=== PATIENT | male | born 1990 | race Caucasian/White ===

== ENCOUNTER 2020-08-13 07:49 | Emergency (ER) | payer OTHER ==
[~2020-08-13] VITALS: Ht 170.2 cm; Wt 70.8 kg
--- NOTE | 2020-08-13 08:11 | NUR ---
The patient is bibra for c/o epigastric pain, burning and c/o vomitng since yesterday. The patient rates pain 8/10. Abdomen soft and non-distended. In room air and denies SOB. Respiration regular and unlabored. Attached on a monitor. Warm blanket provided for comfort. Will continue to monitor the patient.
--- NOTE | 2020-08-13 08:14 | NUR ---
dr. cornejo at bedside
[2020-08-13] MEDS ORDERED: LIDOCAINE VISCOUS 2% UD 15 ML UDC ONE (08:17)
[2020-08-13] MEDS ORDERED: MAG HYDROX/AL HYDROX/SIMETH 30 ML UDC ONE (08:18)
[2020-08-13] MEDS ORDERED: FAMOTIDINE (20 MG) 20 MG TABLET ONE (08:18)
[2020-08-13] MEDS ORDERED: MAG HYDROX/AL HYDROX/SIMETH 30 ML UDC PO ONE (08:30)
[2020-08-13] MEDS ORDERED: LIDOCAINE VISCOUS 2% UD 15 ML UDC MM ONE (08:30)
[2020-08-13] MEDS ORDERED: FAMOTIDINE (20 MG) 20 MG TABLET PO ONE (08:30)
[2020-08-13 08:31] LABS: BASOPHILS % (AUTO) 0.3 % (0.0-2.0); EOSINOPHILS % (AUTO) 0.8 % (0.0-6.0); HEMATOCRIT 38 % (39-51); HEMOGLOBIN 12.6 g/dL (13.5-17.5); LYMPHOCYTES # (AUTO) 1.2 /CMM (0.8-4.8); LYMPHOCYTES % (AUTO) 11.8 % (20.0-44.0); MEAN CORPUSCULAR HGB CONC 34 g/dl (31.0-36.0); MEAN CORPUSCULAR VOLUME 89 fL (80-96); MONOCYTES # (AUTO) 0.6 /CMM (0.1-1.30); MONOCYTES % (AUTO) 6.1 % (2.0-12.0); NEUTROPHILS # (AUTO) 8.3 /CMM (1.8-8.9); PLATELET COUNT (AUTO) 293 /CMM (150-450); RED BLOOD CELL COUNT(AUTO) 4.24 MIL/uL (4.5-6.0); WHITE BLOOD COUNT (AUTO) 10.2 K/uL (4.3-11.0)
[2020-08-13 08:39] LABS: CALCIUM, SERUM 8.5 mg/dL (8.5-10.1); CREATININE 0.7 mg/dL (0.6-1.3); POTASSIUM 3.6 mmol/L (3.5-5.1)
[2020-08-13 08:54] LABS: ALBUMIN 3.5 g/dL (3.4-5.0); BILIRUBIN,DIRECT 0.1 mg/dL (0.0-0.2); BILIRUBIN,TOTAL 0.5 mg/dL (0.2-1.0); TOTAL PROTEIN, SERUM 7.3 g/dL (6.4-8.2)
[2020-08-13] MEDS ORDERED: FAMO-131 PO (09:26)
--- NOTE | 2020-08-13 10:18 | NUR ---
Patient alert and oriented x3. Denies pain. In room air and denies SOB. Respiration regular and unlabored. Patient is in no apparent distress.Patient discharged to home in stable condition. Written and verbal after care instructions given. Patient verbalizes understanding of instruction.
[2020-08-13 10:19] VITALS: BP 133/68
--- NOTE | 2020-08-13 10:30 | NUR ---
"SS Consult: SS Consult requested for homelessness. The pt. is a 30-year-old male who came in seeking medical attention for epigastric pain per EMR. The pt. is alert & oriented x 3. Pt. is responding to internal stimuli, with flight of ideas and elated mood. Pt. is tangential and SW unable to gather much information from pt. Pt. denies SI/HI. Pt. stated he is experiencing homelessness would like to be discharge to previous living arrangements. The pt. refused to sign homeless waiver. SW provided pt. with homeless resources, mental health resources and patient accepted them. SW discussed with Dr. Durbin and pt. will be discharged to [facility] as they is medically cleared. Pt. will follow up with resources as needed. SW provided pt. with the following resources: Substance Abuse resources provided included: [facility] Substance Abuse Self-Helpline ([facility]) ; [facility] [address] [facility]. [place] [address] ; [facility] [address] [facility] [address] ; [facility] [address] [facility] [id number] ; [facility] [phone] ; [facility] 9684 [facility] [phone] ; [facility] 909 [facility] [phone] ; [facility] Substance Abuse Helpline([facility])-[facility] ; [facility] ; [facility] [place]; [facility] [place]; [facility] [place]; [facility] Jonathon Turner; [facility] [place]; [place] [facility] [place]; [facility] Patricio; [facility] Loreta [place]; Alcoholics Anonymous -SFV; Gf-Qpry-Odxwxjp ; Marijuana Anonymous -SFV; Narcotics Anonymous www.na.org; Year-round shelters: [facility] [place] [address] [place] [address] ; [facility] [place] [address] [place] [address]; [place] [facility] [place]26 [place] [facility]. [facility] [address] Winter Shelters: Mirna Stovall [place] Provider: [facility] Address: [address], [address] # of Beds: 47 Population Served: [facility] 6 | [facility]ory [facility] Provider: [facility] Last Address: [address], [address] # of Beds: 66 Population Served: [facility] [place] Provider: First [facility] Serve Address: [address] [facility], [address] # of Beds: 56 Population Served: [facility] [place] Provider: [facility] Address: [address] [place] [address], [address] # of Beds: 49 Population Served: [facility] 8 | [facility] Provider: First to Serve Address: [address] [facility], [address] # of Beds: 37 Population Served: [facility] Hygiene: [facility]: [address] Clinton Sharma ; [facility] [address] [facility] ; [facility] 0189 Don Jonathon Lo . Food Resources: [place] [facility] at [facility]- [address] [place]; Meet Each Need with Dignity ([facility]) [address] [address] Neri. [place]; [facility] 2712 [facility]; [facility] 5365 [facility]. Mental Health resources provided: [facility] [address] [place], [place] [address] ; [facility] [address] [facility] [address], [place], [place] [id number] ; [facility] [address] [facility] [place], [place] [phone] ; [facility] [address] [place], [place] [address] Healthcare Clinics: [facility] [address] [facility], [address] [place]. [place] ; [facility] [address] [facility] [address] [place] [address]; [facility] [place] [address] [facility] [place] [phone]) [phone] Counseling--Outpatient [facility] [address] [facility], [place] [address] (Specializes in in-depth psychotherapy for emotional distress: anxiety, depression, interpersonal conflicts, life transitions, childhood abuse) [facility] [address] [place] [address] (Assist with solving problem marital difficulties, separation & divorce, aging parents, & grief, chronic & terminal illness) [facility] [address] [place] [address] (Deal with loss & grief, anxiety, marital difficulties) Homebound/Mental Health Services [address] [facility], [address] [place], [place] [address] (Provide in-home mental services to people who are incapable of leaving their homes) [facility] Elder[facility] Senior Service/Resource Center [address] [place] [address] [facility] [address] [place] [address] PSYCHIATRIC OUTPATIENT SERVICES [facility] Partial Hospitalization and Intensive Outpatient Program (Managed Care and [place] Only)[address] Rohit Belle [facility] [place] [phone] [facility] Partial Hospitalization and Outpatient [id number] [address]. [address] [place], [place] [phone] [facility] Partial Hospitalization and Outpatient [id number] Jonathon Turner [place], [place] [phone] [facility] Center [id number] [address]. [address] [place], [place] [phone] [facility] Partial Hospitalization and Outpatient [id number] [facility] Jonathon TurnerMOLINE, [phone] "
== END 2020-08-13 10:19 | disposition home or self-care (01) ==
LOC: ER 07:52
DX: R10.13 Epigastric pain (principal); Z59.0 Homelessness; F20.9 Schizophrenia, unspecified; J45.909 Unspecified asthma, uncomplicated
CPT/HCPCS: 36415; 71045-TC; 80048-TC; 80076-TC; 83690-TC; 84484-TC; 85025-TC

== ENCOUNTER 2020-11-20 11:30 | Emergency (ER) | payer OTHER ==
[~2020-11-20] VITALS: Ht 170.2 cm; Wt 70.8 kg
[~2020-11-20 11:30] MED LIST: FAMO-131 PO
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
[2020-11-20] MEDS ORDERED: TDAP [DIPH/PERTUSSIS/TET] 0.5 ML VIAL IM ONE ×2 (14:00→14:04)
[2020-11-20] MEDS ORDERED: BACITRACIN ZINC OINT PACKET 1 EA PACKET TP ONE (14:00)
--- NOTE | 2020-11-20 14:13 | NUR ---
Patient discharged in stable condition with police officers. Written and verbal after care instructions given. Patient and the officers verbalizes understanding of instruction.
[2020-11-20 14:25] VITALS: BP 110/63
== END 2020-11-20 14:25 ==
LOC: ER 11:35
DX: S61.401A Unspecified open wound of right hand, initial encounter (principal); Z86.19 Personal history of other infectious and parasitic diseases; Z60.2 Problems related to living alone; Z79.899 Other long term (current) drug therapy; X58.XXXA Exposure to other specified factors, initial encounter; Y93.89 Activity, other specified; Y92.89 Other specified places as the place of occurrence of the external cause; Y99.8 Other external cause status
CPT/HCPCS: 90471; 90715; 99283; A6403